=== PATIENT | female | born 1975 | race Caucasian/White ===

== ENCOUNTER 2017-04-05 22:41 | Emergency (ER) | payer BC ==
[2017-04-05 22:55] VITALS: BP 160/121
[2017-04-05] MEDS ORDERED: Clindamycin HCl 150 MG Cap PO STA (23:20)
[2017-04-05] MEDS ORDERED: Acetaminophen/HYDROcodone 325-5 MG Tab ONE (23:29)
--- NOTE | 2017-04-05 23:31 | EDM.PDOC ---
ED HPI GENERAL MEDICAL PROBLEM - General Chief Complaint: ENT Problem Stated Complaint: TOOTH PAIN Time Seen by Provider: 04/05/17 22:54 Source of Information: Reports: Patient, RN Notes Reviewed History Limitations: Reports: No Limitations - History of Present Illness INITIAL COMMENTS - FREE TEXT/NARRATIVE: The patient states that she has had a lower left toothache for the past 2 weeks , but developed left mandible pain around 20:30 tonight. Her pain is made worse with chewing on the left side. No recent fever. No oral drainage. She states that she has an appointment to see her dentist in one week, but believes that she may be able to get in as early as tomorrow. Left Lower Oral/Mouth Pain Score (Numeric/FACES): 9 - Related Data Allergies Allergy/AdvReac Type Severity Reaction Status Date / Time codeine Allergy Rash Verified 04/05/17 22:55 Penicillins Allergy Rash Verified 04/05/17 22:55 Home Meds: Home Meds Clindamycin HCl 150 mg PO Q6H #40 capsule 04/05/17 [Rx] Hydrocodone/Acetaminophen [[place] 5-325 Tablet] 1 - 2 tab PO Q6H PRN #5 tablet [Rx] Past Medical History Psychiatric History: Reports: Anxiety - Past Surgical History HEENT Surgical History: Reports: Oral Surgery ([place] teeth extraction), Tonsillectomy Female Surgical History: Reports: Section (x 1) Neurological Surgical History: Reports: Other (See Below) (Left 2nd finger nerve surgery) Social & Family History - Family History Cardiac: Reports: Bypass, Hypertension - Tobacco Use Smoking Status *Q: Never Smoker Second Hand Smoke Exposure: No - Caffeine Use Caffeine Use: Reports: None - Alcohol Use Alcohol Use History: Yes Alcohol Use Frequency: Rarely - Recreational Drug Use Recreational Drug Use: No - Living Situation & Occupation Living situation: Reports: , with Spouse, with Family (3 kids) Occupation: Unemployed ED ROS ENT - Review of Systems Review Of Systems: See Below Constitutional: Reports: No Symptoms HEENT: Reports: No Symptoms Respiratory: Reports: No Symptoms Cardiovascular: Reports: No Symptoms Endocrine: Reports: No Symptoms GI/Abdominal: Reports: No Symptoms : Reports: No Symptoms Musculoskeletal: Reports: No Symptoms Skin: Reports: No Symptoms Neurological: Reports: No Symptoms Psychiatric: Reports: No Symptoms Hematologic/Lymphatic: Reports: No Symptoms Immunologic: Reports: No Symptoms ED EXAM, ENT - Physical Exam Exam: See Below Exam Limited By: No Limitations General Appearance: Alert, WD/WN, No Apparent Distress Eye Exam: Bilateral Eye: Normal Inspection Ears: Normal External Exam, Normal Canal, Hearing Grossly Normal, Normal TMs Nose: Normal Inspection, Normal Mucousa, No Blood Mouth/Throat: Normal Inspection, Normal Gums, Normal Lips, Normal Oropharynx, Other (Tooth #1 absent. Teeth #2, 3, 4, 5 with fillings. Tooth #13 with filling. Tooth #15 with filling. Teeth #16, 17 absent. Tooth #18 with filling. Tooth #21 (the tooth of concern) with filling. No surrounding gingival swelling. Tooth #28 with filling. Tooth #29 with advanced decay. Teeth #30, 31 with fillings. Tooth #32 absent.) Head: Atraumatic, Normocephalic Neck: Normal Inspection, Supple, Non-Tender, Full Range of Motion. No: Lymphadenopathy (L), Lymphadenopathy (R) Course - Vital Signs Last Recorded V/S: Last Vital Signs Temp 36.2 C 04/05/17 22:49 Pulse 97 04/05/17 22:49 Resp 16 04/05/17 22:49 BP 160/121 H 04/05/17 22:49 Pulse Ox - Orders/Labs/Meds Meds: Medications Discontinued Medications Generic Name Dose Route Start Last Admin Trade Name [place] PRN Reason Stop Dose Admin Clindamycin HCl 300 mg 04/05/17 23:20 04/05/17 23:29 Cleocin PO 04/05/17 23:21 300 mg ONETIME STA Administration - Re-Assessments/Exams Free Text/Narrative Re-Assessment/Exam: 04/05/17 23:25 The patient likely has a dental infection of tooth #21. Because she has an allergy to penicillin, I will start her on oral clindamycin and prescribe a ten- day course, however, the hope is that she can get in to see her dentist in the morning. I will discharge her with a 5-pack of [place]. Departure - Departure Time of Disposition: 23:25 Disposition: Home, Self-Care 01 Condition: good Clinical Impression: Dental infection - Discharge Information Prescriptions: Clindamycin HCl 150 mg PO Q6H #40 capsule Hydrocodone/Acetaminophen [[place] 5-325 Tablet] 1 - 2 tab PO Q6H PRN #5 tablet PRN Reason: Pain (Severe 7-10) Instructions: Dental Abscess, [id number] Referrals: Lexie Hinojosa MD [Primary Care Provider] - Forms: ED Department Discharge Additional Instructions: You were seen in the emergency room for a lower left toothache and jaw ache. You likely have a dental infection of tooth #21. You have been started on the antibiotic clindamycin. Take one tablet every 6 hours, as prescribed. Finish the entire prescription unless told otherwise by a dentist. Take [id number] ibuprofen 2-3 tablets (400-600 mg) every 8 hours, with food, as needed for discomfort. You have been given the pain medicine [place]. Take 1 to 2 tablets every 6 hours , as needed for pain not relieved by ibuprofen. Do not drive or operate heavy machinery for 12 hours if you take Onslow. Onslow will likely cause constipation , so consider taking a stool softener. It is IMPERATIVE that you followup with a dentist within 10 days. If any other problems, please do not hesitate to return to the ER.
== END 2017-04-05 23:40 | disposition home or self-care (01) ==
LOC: JD.ED 22:41
DX: K02.9 Dental caries, unspecified (principal); Z88.0 Allergy status to penicillin; Z88.5 Allergy status to narcotic agent; F41.9 Anxiety disorder, unspecified; Z98.890 Other specified postprocedural states
CPT/HCPCS: 99283; A9270

== ENCOUNTER 2019-08-20 07:09 | Day surgery (SDC) | payer BC ==
[~2019-08-20 07:09] MED LIST: Lactated Ringers 1,000 ML IV SCH; Lidocaine 1%/Sod Bicarbonate in NS 8.4% 1 ML Syringe IDERM PRN; Sodium Chloride 0.9% 10 ML Syringe FLUSH PRN
[2019-08-20] MEDS ORDERED: Scopolamine 1.5 MG Transdermal Patch TOP SCH (07:34)
[2019-08-20] MEDS ORDERED: Lidocaine 1% with EPINEPHrine 1:100,000 20 ML MDV ONE (08:13)
--- NOTE | 2019-08-20 08:35 | PCM.PREANE ---
Preanesthetic Assessment - Anesthesia/Transfusion/Family Hx Anesthesia History: Prior Anesthesia Reaction Type of Anesthesia Reaction: Excessive Nausea/Vomiting Family History of Anesthesia Reaction: No Transfusion History: No Prior Transfusion(s) - Review of Systems General: No Symptoms Pulmonary: No Symptoms Cardiovascular: No Symptoms (Hypertension) Gastrointestinal: No Symptoms Neurological: Pre-Existing Deficit (Back pain mostly on the right side. ) Other: Reports: None (Morbid Obesity BMI 45), Depression, Anxiety - Physical Assessment NPO Status Date: 08/19/19 NPO Status Time: 22:30 Vital Signs: Last Vital Signs Temp 36.4 C 08/20/19 07:20 Pulse 106 H 08/20/19 07:20 Resp 16 08/20/19 07:20 BP 154/112 H 08/20/19 07:20 Pulse Ox 96 08/20/19 07:20 Height: 1.63 m Weight: 118.841 kg ASA Class: 2 Mental Status: Alert & Oriented x3 Airway Class: Mallampati = 1 Dentition: Reports: Broken Tooth/Teeth (Chipped, discolored. ) Thyro-Mental Finger Breadths: 3 Mouth Opening Finger Breadths: 3 ROM/Head Extension: Full Lungs: Clear to Auscultation, Normal Respiratory Effort Cardiovascular: Regular Rate, Regular Rhythm - Lab Values: Laboratory Last Values WBC 8.04 K/mm3 (3.98-10.04) 08/20/19 07:34 RBC 4.81 M/mm3 (3.98-5.22) 08/20/19 07:34 Hgb 13.0 gm/dl (11.2-15.7) 08/20/19 07:34 Hct 38.3 % (34.1-44.9) 08/20/19 07:34 MCV 79.6 fl (79.4-94.8) 08/20/19 07:34 MCH 27.0 pg (25.6-32.2) 08/20/19 07:34 MCHC 33.9 g/dl (32.2-35.5) 08/20/19 07:34 RDW Std Deviation 45.3 fL (36.4-46.3) 08/20/19 07:34 Plt Count 396 K/mm3 (182-369) H 08/20/19 07:34 MPV 9.0 fl (9.4-12.3) L 08/20/19 07:34 Neut % (Auto) 61.6 % (34.0-71.1) 08/20/19 07:34 Lymph % (Auto) 28.1 % (19.3-51.7) 08/20/19 07:34 [place] % (Auto) 8.1 % (4.7-12.5) 08/20/19 07:34 Eos % (Auto) 2.0 (0.7-5.8) 08/20/19 07:34 Baso % (Auto) 0.2 % (0.1-1.2) 08/20/19 07:34 Neut # (Auto) 4.95 K/mm3 (1.56-6.13) 08/20/19 07:34 Lymph # (Auto) 2.26 K/mm3 (1.18-3.74) 08/20/19 07:34 [place] # (Auto) 0.65 K/mm3 (0.24-0.36) H 08/20/19 07:34 Eos # (Auto) 0.16 K/mm3 (0.04-0.36) 08/20/19 07:34 Baso # (Auto) 0.02 K/mm3 (0.01-0.08) 08/20/19 07:34 Urine Color Yellow (Yellow) 08/20/19 07:16 Urine Appearance Turbid (Clear) H 08/20/19 07:16 Urine pH 6.0 (5.0-8.0) 08/20/19 07:16 Ur Specific [place] > or = 1.030 (1.005-1.030) 08/20/19 07:16 Urine Protein 1+ (Negative) H 08/20/19 07:16 Urine Glucose (UA) Negative (Negative) 08/20/19 07:16 Urine Ketones Negative (Negative) 08/20/19 07:16 Urine Occult Blood Trace-lysed (Negative) H 08/20/19 07:16 Urine Nitrite Negative (Negative) 08/20/19 07:16 Urine Bilirubin Negative (Negative) 08/20/19 07:16 Urine Urobilinogen 0.2 (0.2-1.0) 08/20/19 07:16 Ur Leukocyte Esterase Negative (Negative) 08/20/19 07:16 Urine HCG, Qual Negative (NEGATIVE) 08/20/19 07:16 - Allergies Allergies/Adverse Reactions: Allergies Allergy/AdvReac Type Severity Reaction Status Date / Time codeine Allergy Rash Verified 08/19/19 13:16 Penicillins Allergy Rash Verified 08/19/19 13:16 - Anesthesia Plan Pre-Op Medication Ordered: Anxiolytic - Acknowledgements Anesthesia Type Planned: General Anesthesia Pt an Appropriate Candidate for the Planned Anesthesia: Yes Alternatives and Risks of Anesthesia Discussed w Pt/Guardian: Yes Pt/Guardian Understands and Agrees with Anesthesia Plan: Yes PreAnesthesia Questionnaire HEENT History: Reports: Impaired Vision Cardiovascular History: Reports: Hypertension Respiratory History: Reports: None Gastrointestinal History: Reports: Other (See Below) Other Gastrointestinal History: gastric ulcer Genitourinary History: Reports: None COMPLAINT CLERK History: Reports: Other (See Below) Other OB/BYN History: menorrhagia, dysmenorrhea, , irregular menses Musculoskeletal History: Reports: None Neurological History: Reports: None Psychiatric History: Reports: Anxiety, Depression Endocrine/Metabolic History: Reports: None Hematologic History: Reports: None Immunologic History: Reports: None Oncologic (Cancer) History: Reports: None Dermatologic History: Reports: None - Past Surgical History Head Surgeries/Procedures: Reports: None HEENT Surgical History: Reports: Oral Surgery, Tonsillectomy Cardiovascular Surgical History: Reports: None Respiratory Surgical History: Reports: None GI Surgical History: Reports: None Female Surgical History: Reports: Section Male Surgical History: Reports: None Endocrine Surgical History: Reports: None Neurological Surgical History: Reports: None, Other (See Below) Musculoskeletal Surgical History: Reports: Other (See Below) Other Musculoskeletal Surgeries/Procedures:: left extensor tendon repair Oncologic Surgical History: Reports: None Dermatological Surgical History: Reports: None - SUBSTANCE USE Smoking Status *Q: Never Smoker Recreational Drug Use History: No - HOME MEDS Home Medications: Home Meds Diltiazem [Cardizem CD] 120 mg PO DAILY 08/19/19 [History] Multivitamin [Daily Multiple Vitamin] 1 tab PO DAILY 08/19/19 [History] Venlafaxine HCl [Venlafaxine ER] 75 mg PO DAILY 08/19/19 [History] hydroCHLOROthiazide [Hydrochlorothiazide] 25 mg PO DAILY 08/19/19 [History] - CURRENT (IN HOUSE) MEDS Current Meds: Current Medications Lactated Ringer's (Ringers, Lactated) 1,000 mls @ 125 mls/hr IV ASDIRECTED SILVANO Stop: 08/20/19 23:00 Last Admin: 08/20/19 07:35 Dose: 125 mls/hr Lidocaine/Sodium Bicarbonate (Buffered Lidocaine 1% In Ns 8.4%) 0.25 ml IDERM ONETIME PRN PRN Reason: Prior to IV Start Stop: 08/20/19 18:00 Last Admin: 08/20/19 07:34 Dose: 0.25 ml Scopolamine (Transderm-Scop) 1.5 mg TOP ONETIME SILVANO Stop: 08/20/19 11:00 Last Admin: 08/20/19 07:44 Dose: 1.5 mg Sodium Chloride (Saline Flush) 10 ml FLUSH ASDIRECTED PRN PRN Reason: Keep Vein Open Stop: 08/20/19 18:00 Discontinued Medications Lidocaine/Epinephrine (Xylocaine 1% With Epinephrine 1:100,000) Confirm Administered Dose 20 ml .ROUTE .STK-MED ONE Stop: 08/20/19 08:14
[2019-08-20] MEDS ORDERED: Succinylcholine/Normal Saline 100 MG/5 ML Syringe ONE (08:37)
[2019-08-20] MEDS ORDERED: Ondansetron 4 MG/2 ML SDV ONE (08:37)
[2019-08-20] MEDS ORDERED: ceFAZolin 1 GM Vial ONE (08:37)
[2019-08-20] MEDS ORDERED: Lactated Ringers 1,000 ML ONE (08:37)
[2019-08-20] MEDS ORDERED: Lidocaine 1% 4 ML ONE (08:37)
[2019-08-20] MEDS ORDERED: Rocuronium 50 MG/5 ML Vial ONE (08:37)
[2019-08-20] MEDS ORDERED: Propofol 200 MG/20 ML SDV ONE ×2 (08:38→09:25)
[2019-08-20] MEDS ORDERED: fentaNYL 250 MCG/5 ML SDV ONE (08:39)
[2019-08-20] MEDS ORDERED: Midazolam 1 MG/ML 2 ML SDV ONE (08:39)
[2019-08-20] MEDS ORDERED: Ondansetron 4 MG/2 ML SDV IVPUSH PRN ×2 (09:20→10:14)
[2019-08-20] MEDS ORDERED: fentaNYL 100 MCG/2 ML SDV IVPUSH PRN (09:20)
[2019-08-20] MEDS ORDERED: Dexamethasone 4 MG/ML 5 ML MDV ONE (09:22)
[2019-08-20] MEDS ORDERED: diphenhydrAMINE 50 MG/ML SDV ONE (09:23)
[2019-08-20] MEDS ORDERED: Ketorolac 30 MG/ML SDV ONE (09:23)
--- NOTE | 2019-08-20 09:56 | PCM.POSTAN ---
POST ANESTHESIA ASSESSMENT - MENTAL STATUS Mental Status: Other (Drowsy, Arousable) - VITAL SIGNS Vital Signs: Last Vital Signs Temp 36.4 C 08/20/19 07:20 Pulse 106 H 08/20/19 07:20 Resp 16 08/20/19 07:20 BP 154/112 H 08/20/19 07:20 Pulse Ox 96 08/20/19 07:20 - RESPIRATORY Respiratory Status: Respiratory Rate WNL, Airway Patent, O2 Saturation Stable, Supplemental Oxygen - CARDIOVASCULAR CV Status: Pulse Rate WNL, Blood Pressure Stable - GASTROINTESTINAL GI Status: No Symptoms - PAIN Pain Score: 0 - POST OP HYDRATION Hydration Status: Adequate & Stable
[2019-08-20] MEDS ORDERED: Ibuprofen 600 MG Tab PO PRN (10:14)
[2019-08-20] MEDS ORDERED: Ketorolac 30 MG/ML SDV IVPUSH SCH (10:15)
--- NOTE | 2019-08-20 10:25 | PCM.OPNOTE ---
- General Post-Op/Procedure Note Date of Surgery/Procedure: 08/20/19 Operative Procedure(s): Hysteroscopy, dilation and curettage, NovaSure endometrial ablation Findings: Patient had somewhat thickened endometrium however no polypoid structures were noted. Uterus and cervix sounded to 9.5 cm with cervix being 3 cm long for uterine cavity length of 6.5 cm. No adnexal abnormality noted. However it was a difficult exam because of patient's body habitus and BMI of 45. Cervix is multiparous in appearance. Pre Op Diagnosis: 1. Menorrhagia. 2. Dysmenorrhea. 3. Right vulvar skin tag. Panty line area3 x 4 mm-raised approximately 3 mm. Post-Op Diagnosis: Same Anesthesia Technique: General ET Tube Primary Surgeon: Jose Jhaveri Secondary Surgeon: Joao Braxton Anesthesia Provider: Candie Matute Pathology: 1. Endometrial curettings 2. Right vulvar skin tag Fluid Replacement, Intraop: 1,000 EBL in mLs: 5 Complications: None Condition: Good Free Text/Narrative:: Surgery duration: 19 minutes Procedure: Patient was instructed as to procedure, its risks, benefits, limitations and follow-up and had signed a consent for surgery. The patient is taken the operative placed in a supine position on the operating table. She received 2 g of Ancef preoperatively for infection prophylaxis and had sequential compression stockings in place for DVT prophylaxis. Patient was given general anesthesia and an endotracheal tube was placed for ventilation. She is placed in a dorsal lithotomy position and prepped and draped in usual fashion. An exam under anesthesia was performed. Findings as described above. A weighted speculum was placed in the vagina. Cervix is visualized. It was grasped anteriorly with a single-tooth tenaculum. Uterus with cervix was then sounded to a depth of 9.5 cm. The cervix was dilated to allow passage of a 5 mm 12 rigid hysteroscope. This was placed without problem and normal saline was used as a distending medium. The endometrial cavity was visualized. Findings as described above. D&C was performed. Moderate amount tissue was obtained. Minimal bleeding was encountered. Endometrial ablation was then performed. Should be noted consent was appropriately signed by the patient prior to the procedure. The cervix was dilated to allow placement of the NovaSure endometrial apparatus. Uterine cavity was 6.5 cm in length. Power was 164 W. The duration was 60 seconds Hysteroscope was then placed back into the endometrial cavity. Blood was flushed out and the findings were consistent with a cauterized endometrial cavity. At this point the scope was removed. The vagina was cleared of old blood , the cervix was released and the weighted speculum was removed. Right vulvar skin tag was removed using a scalpel and forceps. Base of the lesion was cauterized with silver nitrate sticks. Specimen was sent for histologic evaluation. Patient was returned to supine position and awakened from general anesthesia. She tolerated the procedure well and operating room in good condition.
--- NOTE | 2019-08-20 12:13 | PCM48HPAN ---
Post Anesthesia Note - EVALUATION WITHIN 48HRS OF ANESTHETIC Vital Signs in Normal Range: Yes Patient Participated in Evaluation: Yes Respiratory Function Stable: Yes Airway Patent: Yes Cardiovascular Function Stable: Yes Hydration Status Stable: Yes Pain Control Satisfactory: Yes Nausea and Vomiting Control Satisfactory: Yes Mental Status Recovered: Yes Vital Signs: Last Vital Signs Temp 36.4 C 08/20/19 10:42 Pulse 88 08/20/19 11:30 Resp 16 08/20/19 11:30 BP 152/106 H 08/20/19 11:30 Pulse Ox 93 L 08/20/19 11:30
[2019-08-20 13:27] VITALS: BP 143/98; PULSE 91
== END 2019-08-20 13:15 | disposition home or self-care (01) ==
LOC: JD.SDS 07:09
PROVIDERS: ATTEND Obstetrics & Gynecology
DX: N92.0 Excessive and frequent menstruation with regular cycle (principal); N94.6 Dysmenorrhea, unspecified; N90.89 Other specified noninflammatory disorders of vulva and perineum; D28.0 Benign neoplasm of vulva; F41.9 Anxiety disorder, unspecified; F32.9 Major depressive disorder, single episode, unspecified; I10 Essential (primary) hypertension; Z88.5 Allergy status to narcotic agent; Z88.0 Allergy status to penicillin; Z79.899 Other long term (current) drug therapy
CPT/HCPCS: 36415; 58563; 81003; 81025; 85025; 93005; A9270; J0330; J0690; J1100; J1200; J1885; J2001; J2250; J2405; J2704; J3010; J7120; 00952

== ENCOUNTER 2024-03-16 15:06 | Observation (INO) | payer BC ==
[2024-03-16] MEDS: Sodium Chloride 0.9% 1,000 ML IV SCH ×2 (15:49→20:30)
[2024-03-16] MEDS: Meclizine 25 MG Tab PO ONE (15:49)
[2024-03-16] MEDS: Sodium Chloride 0.9% 10 ML Syringe FLUSH PRN (15:51)
[2024-03-16 16:13] LABS: BASOPHILS PERCENT AUTO 0.5 % (0.0-1.0); EOSINOPHILS PERCENT AUTO 0.5 % (0.0-6.0); HEMOGLOBIN 14.2 gm/dl (12.0-16.0); IMMATURE GRAN ABSOLUTE AUTO 0.01 K/mm3 (0.00-0.05); IMMATURE GRAN PERCENT AUTO 0.2 % (0.0-0.4); LYMPHOCYTES ABSOLUTE AUTO 1.1 K/mm3 (1.0-4.8); LYMPHOCYTES PERCENT AUTO 16.5 % (24.0-44.0); MEAN CORPUSCULAR HEMOGLOBIN 28.1 pg (28.0-32.0); MEAN CORPUSCULAR HGB CONC 33.8 g/dl (32.0-36.0); MEAN PLATELET VOLUME 9.7 fl (9.4-12.3); MONOCYTES ABSOLUTE AUTO 0.3 K/mm3 (0.0-0.8); MONOCYTES PERCENT AUTO 3.8 % (0.0-8.0); NEUTROPHILS ABSOLUTE AUTO 5.2 K/mm3 (1.8-7.7); NEUTROPHILS PERCENT AUTO 78.5 % (41.0-71.0); PLATELET COUNT,PLT 79 K/mm3 (150-400); RED BLOOD CELL COUNT 5.06 M/mm3 (4.10-5.30); WHITE BLOOD CELL COUNT,WBC 6.55 K/mm3 (3.9-11.3)
[2024-03-16] MEDS: Iopamidol 755 Mg/ML 100 ML Bottle IVPUSH ONE (16:39)
[2024-03-16] MEDS: Sodium Chloride 0.9% 100 ML IV SCH (16:39)
[2024-03-16 16:57] LABS: A/G RATIO 1.1 (1-2); ALANINE AMINOTRANSFERASE,ALT 22 U/L (14-59); ALBUMIN 3.4 g/dl (3.4-5.0); ALKALINE PHOSPHATASE 63 U/L (46-116); ANION GAP 16.9 (5-15); ASPARTATE AMNIOTRANSFERASE,AST 20 U/L (15-37); BILIRUBIN TOTAL 0.7 mg/dL (0.2-1.0); BLOOD UREA NITROGEN,BUN 14 mg/dL (7-18); BUN/CREATININE RATIO 17.5 (14-18); CALCIUM 8.9 mg/dL (8.5-10.1); CARBON DIOXIDE,CO2 24 mEq/L (21-32); CHLORIDE,CL 101 mEq/L (98-107); CREATININE 0.8 mg/dL (0.55-1.02); EST CRCL DRUG DOSING (CG) 85.45 mL/min; ESTIMATED GFR 92 mL/min (>60); GLUCOSE RANDOM 96 mg/dL (70-99); MAGNESIUM 1.7 mg/dL (1.8-2.4); POTASSIUM,K 3.9 mEq/L (3.5-5.1); PROTEIN TOTAL,TP 6.5 g/dl (6.4-8.2); SODIUM,NA 138 mEq/L (136-145)
[2024-03-16 17:02] LABS: TROPONIN I HIGH SENSITIVITY < 4 pg/mL (<=51)
[2024-03-16] MEDS: Acetaminophen 325 MG Tab PO PRN (21:59)
[2024-03-16] MEDS: Meclizine 25 MG Tab PO PRN (21:59)
[2024-03-16] MEDS: Ondansetron 4 MG/2 ML SDV IVPUSH PRN (22:00)
[2024-03-17] MEDS ORDERED: Non-Formulary Medication 1 Each (Acetaminophen 500 MG Tablet) PO PRN (06:49)
[2024-03-17 07:19] LABS: BASOPHILS PERCENT AUTO 0.2 % (0.0-1.0); EOSINOPHILS ABSOLUTE AUTO 0.1 K/mm3 (0.0-0.4); EOSINOPHILS PERCENT AUTO 0.8 % (0.0-6.0); HEMATOCRIT 42.8 % (37.0-47.0); HEMOGLOBIN 14.3 gm/dl (12.0-16.0); IMMATURE GRAN ABSOLUTE AUTO 0.01 K/mm3 (0.00-0.05); IMMATURE GRAN PERCENT AUTO 0.1 % (0.0-0.4); LYMPHOCYTES ABSOLUTE AUTO 2.5 K/mm3 (1.0-4.8); LYMPHOCYTES PERCENT AUTO 24.5 % (24.0-44.0); MEAN CORPUSCULAR HEMOGLOBIN 28.2 pg (28.0-32.0); MEAN CORPUSCULAR HGB CONC 33.4 g/dl (32.0-36.0); MEAN CORPUSCULAR VOLUME 84.4 fl (83.0-99.0); MEAN PLATELET VOLUME 8.9 fl (9.4-12.3); MONOCYTES ABSOLUTE AUTO 0.7 K/mm3 (0.0-0.8); MONOCYTES PERCENT AUTO 7.3 % (0.0-8.0); NEUTROPHILS ABSOLUTE AUTO 6.7 K/mm3 (1.8-7.7); NEUTROPHILS PERCENT AUTO 67.1 % (41.0-71.0); RED BLOOD CELL COUNT 5.07 M/mm3 (4.10-5.30); WHITE BLOOD CELL COUNT,WBC 10.04 K/mm3 (3.9-11.3)
[2024-03-17 07:34] LABS: ALBUMIN 3.2 g/dl (3.4-5.0); ANION GAP 10.4 (5-15); BILIRUBIN TOTAL 0.5 mg/dL (0.2-1.0); CALCIUM 8.5 mg/dL (8.5-10.1); EST CRCL DRUG DOSING (CG) 68.36 mL/min; MAGNESIUM 1.8 mg/dL (1.8-2.4); POTASSIUM,K 3.4 mEq/L (3.5-5.1); PROTEIN TOTAL,TP 6.3 g/dl (6.4-8.2)
[2024-03-17 07:37] LABS: PLATELET COUNT,PLT 345 K/mm3 (150-400)
[2024-03-17] MEDS: Potassium Bicarbonate/Cit Ac 10 MEQ Effervescent Tab PO ONE (08:58)
[2024-03-17] MEDS ORDERED: Citalopram 20 MG Tab PO SCH (09:00)
[2024-03-17] MEDS ORDERED: Lisinopril 20 MG Tab PO SCH (09:00)
[2024-03-17] MEDS ORDERED: Chlorthalidone 25 MG Tab PO SCH (09:00)
[2024-03-17] MEDS ORDERED: Diltiazem 240 MG Cap.ER PO SCH (09:00)
[2024-03-17] MEDS ORDERED: LORazepam 0.5 MG Tab PO PRN (11:12)
[2024-03-17] MEDS: Heparin Sodium 5,000 Units/ML Vial SUBCUT SCH (12:12)
[2024-03-17] MEDS: Citalopram 20 MG Tab PO SCH (20:53)
[2024-03-17] MEDS: Chlorthalidone 25 MG Tab PO SCH (20:53)
[2024-03-17] MEDS: Diltiazem 240 MG Cap.ER PO SCH (20:54)
[2024-03-17] MEDS: Lisinopril 20 MG Tab PO SCH (20:54)
[2024-03-18 05:53] LABS: BASOPHILS PERCENT AUTO 0.4 % (0.0-1.0); EOSINOPHILS ABSOLUTE AUTO 0.2 K/mm3 (0.0-0.4); EOSINOPHILS PERCENT AUTO 2.3 % (0.0-6.0); HEMOGLOBIN 13.5 gm/dl (12.0-16.0); IMMATURE GRAN ABSOLUTE AUTO 0.03 K/mm3 (0.00-0.05); IMMATURE GRAN PERCENT AUTO 0.4 % (0.0-0.4); LYMPHOCYTES ABSOLUTE AUTO 2.9 K/mm3 (1.0-4.8); LYMPHOCYTES PERCENT AUTO 37.5 % (24.0-44.0); MEAN CORPUSCULAR HGB CONC 33.8 g/dl (32.0-36.0); MEAN PLATELET VOLUME 9.2 fl (9.4-12.3); MONOCYTES ABSOLUTE AUTO 0.5 K/mm3 (0.0-0.8); MONOCYTES PERCENT AUTO 6.8 % (0.0-8.0); NEUTROPHILS ABSOLUTE AUTO 4.1 K/mm3 (1.8-7.7); NEUTROPHILS PERCENT AUTO 52.6 % (41.0-71.0); PLATELET COUNT,PLT 349 K/mm3 (150-400); RED BLOOD CELL COUNT 4.82 M/mm3 (4.10-5.30); WHITE BLOOD CELL COUNT,WBC 7.74 K/mm3 (3.9-11.3)
[2024-03-18 06:23] LABS: A/G RATIO 1.1 (1-2); ALBUMIN 3.2 g/dl (3.4-5.0); ANION GAP 12.3 (5-15); BILIRUBIN TOTAL 0.4 mg/dL (0.2-1.0); CALCIUM 8.4 mg/dL (8.5-10.1); CREATININE 0.9 mg/dL (0.55-1.02); EST CRCL DRUG DOSING (CG) 75.95 mL/min; POTASSIUM,K 3.3 mEq/L (3.5-5.1); PROTEIN TOTAL,TP 6.2 g/dl (6.4-8.2)
[2024-03-18] MEDS: Heparin Sodium 5,000 Units/ML Vial SUBCUT SCH (13:39)
[2024-03-18] MEDS: Potassium Bicarbonate/Cit Ac 10 MEQ Effervescent Tab PO ONE (18:38)
[2024-03-18 18:39] VITALS: BP 128/90; PULSE 81
== END 2024-03-18 18:55 | disposition home or self-care (01) ==
LOC: JD.ED 15:06 → JD.MS 18:39
PROVIDERS: ADMIT Internal Medicine; ATTEND Internal Medicine
DX: R42 Dizziness and giddiness (principal); E87.6 Hypokalemia; I10 Essential (primary) hypertension; K21.9 Gastro-esophageal reflux disease without esophagitis; D69.6 Thrombocytopenia, unspecified; E66.9 Obesity, unspecified; F32.A Depression, unspecified; Z79.899 Other long term (current) drug therapy; Z88.5 Allergy status to narcotic agent; Z88.0 Allergy status to penicillin
CPT/HCPCS: 36415; 70450; 70496; 70498; 70551; 80053; 83735; 84484; 85025; 93005; 95992; 96361; 96374; 97161; 97530; 99285; A9270; J1644; J2405; J3360; J3490; J7030; Q9967; 93010; 99222; 99284

== ENCOUNTER 2024-11-26 12:00 | Inpatient (IN) | payer BC ==
[2024-11-26] MEDS: Sodium Chloride 0.9% 10 ML Syringe FLUSH ONE (13:20)
[2024-11-26] MEDS: Iopamidol 612 MG/ML 100 ML Bottle IVPUSH ONE (13:20)
[2024-11-26 13:25] LABS: BASOPHILS PERCENT AUTO 0.4 % (0.0-1.0); EOSINOPHILS ABSOLUTE AUTO 0.1 K/mm3 (0.0-0.4); HEMATOCRIT 44.5 % (37.0-47.0); IMMATURE GRAN ABSOLUTE AUTO 0.01 K/mm3 (0.00-0.05); IMMATURE GRAN PERCENT AUTO 0.1 % (0.0-0.4); LYMPHOCYTES ABSOLUTE AUTO 1.4 K/mm3 (1.0-4.8); LYMPHOCYTES PERCENT AUTO 17.1 % (24.0-44.0); MEAN CORPUSCULAR HEMOGLOBIN 28.4 pg (28.0-32.0); MEAN CORPUSCULAR HGB CONC 33.7 g/dl (32.0-36.0); MEAN CORPUSCULAR VOLUME 84.3 fl (83.0-99.0); MEAN PLATELET VOLUME 9.1 fl (9.4-12.3); MONOCYTES ABSOLUTE AUTO 0.5 K/mm3 (0.0-0.8); NEUTROPHILS PERCENT AUTO 75.4 % (41.0-71.0); PLATELET COUNT,PLT 342 K/mm3 (150-400); RED BLOOD CELL COUNT 5.28 M/mm3 (4.10-5.30); WHITE BLOOD CELL COUNT,WBC 7.94 K/mm3 (3.9-11.3)
[2024-11-26 13:48] LABS: A/G RATIO 1.1 (1-2); ALBUMIN 3.8 g/dl (3.4-5.0); ANION GAP 14.9 (5-15); BILIRUBIN TOTAL 0.5 mg/dL (0.2-1.0); BUN/CREATININE RATIO 11.3 (14-18); C-REACTIVE PROTEIN 0.27 mg/dL (<0.30); CALCIUM 9.1 mg/dL (8.5-10.1); CREATININE 0.8 mg/dL (0.55-1.02); EST CRCL DRUG DOSING (CG) 75.07 mL/min; POTASSIUM,K 3.9 mEq/L (3.5-5.1); PROTEIN TOTAL,TP 7.3 g/dl (6.4-8.2)
[2024-11-26] MEDS ORDERED: cefTRIAXone 2 GM, Lidocaine 1% 4.2 ML IM ONE (15:00)
[2024-11-26] MEDS: cefTRIAXone 2 GM in Sodium Chloride 0.9% 100 ML IV ONE (15:09)
[2024-11-26] MEDS: cefTRIAXone 2 GM Vial IVPUSH ONE (15:40)
[2024-11-26] MEDS: Ondansetron 4 MG/2 ML SDV IVPUSH ONE (15:46)
[2024-11-26] MEDS: metroNIDAZOLE/Normal Saline 500 MG in Premix Bag 1 BAG IV ONE (15:57)
[2024-11-26 16:22] LABS: LACTIC ACID 1.3 mmol/L (0.4-2.0)
[2024-11-26] MEDS ORDERED: Meclizine 25 MG Tab PO PRN (18:27)
[2024-11-26] MEDS ORDERED: LORazepam 0.5 MG Tab PO PRN (18:27)
[2024-11-26] MEDS ORDERED: oxyCODONE 5 MG Tab PO PRN (18:33)
[2024-11-26] MEDS ORDERED: Ondansetron 4 MG/2 ML SDV IV PRN (18:33)
[2024-11-26] MEDS ORDERED: Naloxone 0.4 MG/ML SDV IVPUSH PRN (18:33)
[2024-11-26] MEDS ORDERED: Morphine 2 MG/ML SYRINGE IVPUSH PRN (18:33)
[2024-11-26] MEDS ORDERED: Sennosides/Docusate Sodium 50-8.6 MG Tab PO PRN (18:33)
[2024-11-26] MEDS ORDERED: Melatonin 3 MG Tab PO PRN (18:33)
[2024-11-26] MEDS: Sodium Chloride 0.9% 1,000 ML IV SCH (18:34)
[2024-11-26] MEDS: Acetaminophen 325 MG Tab PO PRN (18:37)
[2024-11-26] MEDS: Hydrochlorothiazide 25 MG Tab PO SCH (20:45)
[2024-11-26] MEDS: Diltiazem 240 MG Cap.ER PO SCH (20:45)
[2024-11-26] MEDS: Citalopram 20 MG Tab PO SCH (20:45)
[2024-11-26] MEDS: metroNIDAZOLE/Normal Saline 500 MG in Premix Bag 1 BAG IV SCH (23:39)
[2024-11-27 04:59] LABS: BASOPHILS PERCENT AUTO 0.4 % (0.0-1.0); EOSINOPHILS ABSOLUTE AUTO 0.1 K/mm3 (0.0-0.4); EOSINOPHILS PERCENT AUTO 1.4 % (0.0-6.0); HEMATOCRIT 41.7 % (37.0-47.0); HEMOGLOBIN 13.8 gm/dl (12.0-16.0); IMMATURE GRAN ABSOLUTE AUTO 0.02 K/mm3 (0.00-0.05); IMMATURE GRAN PERCENT AUTO 0.3 % (0.0-0.4); LYMPHOCYTES ABSOLUTE AUTO 2.5 K/mm3 (1.0-4.8); LYMPHOCYTES PERCENT AUTO 31.6 % (24.0-44.0); MEAN CORPUSCULAR HEMOGLOBIN 28.3 pg (28.0-32.0); MEAN CORPUSCULAR HGB CONC 33.1 g/dl (32.0-36.0); MEAN CORPUSCULAR VOLUME 85.5 fl (83.0-99.0); MEAN PLATELET VOLUME 9.3 fl (9.4-12.3); MONOCYTES ABSOLUTE AUTO 0.7 K/mm3 (0.0-0.8); MONOCYTES PERCENT AUTO 8.2 % (0.0-8.0); NEUTROPHILS ABSOLUTE AUTO 4.6 K/mm3 (1.8-7.7); NEUTROPHILS PERCENT AUTO 58.1 % (41.0-71.0); PLATELET COUNT,PLT 309 K/mm3 (150-400); RED BLOOD CELL COUNT 4.88 M/mm3 (4.10-5.30); WHITE BLOOD CELL COUNT,WBC 7.95 K/mm3 (3.9-11.3)
[2024-11-27] MEDS: Enoxaparin 40 MG/0.4 ML Syringe SUBCUT SCH (09:00)
[2024-11-27] MEDS: cefTRIAXone 1 GM in Sodium Chloride 0.9% 50 ML IV SCH (10:50)
[2024-11-27] MEDS ORDERED: Hydrocortisone 1% Crm 30 GM Tube TOP PRN (11:25)
[2024-11-27] MEDS: Hydrocortisone 1% Crm 30 GM Tube TOP PRN (12:03)
[2024-11-27 12:47] VITALS: BP 140/93; PULSE 80
[2024-11-27] MEDS ORDERED: Citalopram 20 MG Tab PO SCH (21:00)
[2024-11-27] MEDS ORDERED: Diltiazem 240 MG Cap.ER PO SCH (21:00)
[2024-11-27] MEDS ORDERED: Lisinopril 20 MG Tab PO SCH (21:00)
[2024-11-28] MEDS ORDERED: cefTRIAXone 1 GM Vial IVPUSH SCH (11:00)
== END 2024-11-27 17:49 | disposition home or self-care (01) | DRG 115 ==
LOC: JD.ED 12:00 → JD.MS 14:57
PROVIDERS: ADMIT Student in an Organized Health Care Education/Training Program; ATTEND Student in an Organized Health Care Education/Training Program
DX: K11.20 Sialoadenitis, unspecified (principal); I10 Essential (primary) hypertension; K21.9 Gastro-esophageal reflux disease without esophagitis; F41.9 Anxiety disorder, unspecified; F32.A Depression, unspecified; S82.402D Unspecified fracture of shaft of left fibula, subsequent encounter for closed fracture with routine healing; E11.9 Type 2 diabetes mellitus without complications; Z88.0 Allergy status to penicillin; H54.7 Unspecified visual loss; Z88.5 Allergy status to narcotic agent; Z79.899 Other long term (current) drug therapy; Z90.89 Acquired absence of other organs; Z90.710 Acquired absence of both cervix and uterus; Z98.890 Other specified postprocedural states; X58.XXXD Exposure to other specified factors, subsequent encounter
CPT/HCPCS: 36415; 70487; 70487-26; 80053; 83605; 85025; 85652; 86140; 87040; A9270-GY; J0696; J1650; J1836; J2405; J3490; J7030; Q9967